=== PATIENT | male | born 1965 | race African-American/Black ===

== ENCOUNTER 2020-06-16 22:02 | Emergency (ER) | payer MEDICAID ==
[~2020-06-16] VITALS: Ht 180.3 cm; Wt 81.6 kg
--- NOTE | 2020-06-16 22:13 | NUR ---
ED Nurse Note: Patient brought in by ambulance from home [id number] c/o back pain 10/10 aching, pt reports he has hx of chronic back pain and gets nerve pain injections. Patient aao x 4 and ambulatory. Patient reports he was doing work in the house 3 days ago and feels it has aggravated his back pain, pt reports unable to bear weight. No acute distress noted during assessment.
[2020-06-16 22:15] VITALS: BP 154/89
[2020-06-16] MEDS ORDERED: HYDROcodone/Acetamin 5/325 tab ORAL ONE (22:30)
--- NOTE | 2020-06-16 22:30 | NUR ---
ED Nurse Note: Patient taken to xray in stable condition
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
[2020-06-16] MEDS ORDERED: IBUPROFEN600 M1 ORAL (22:48)
[2020-06-16] MEDS ORDERED: HYDROCODON-ACE1 EA15 ORAL (22:48)
[2020-06-16 22:55] VITALS: BP 148/85
--- NOTE | 2020-06-16 22:55 | NUR ---
ER DISCHARGE NOTE: Patient is cleared to be discharged per ERMD, pt is aox4, on room air, with stable vital signs. pt was given dc and prescription instructions, pt was able to verbalize understanding, pt id band removed. pt is able to ambulate with steady gait. pt took all belongings. pt stable upon discharge.
--- NOTE | 2020-06-18 14:21 | Diagnostic Imaging Report ---
Indication: Chest/rib pain Technique: PA view of the chest; 6 views of the right ribs Comparison: None Findings: Heart size and mediastinal contours within normal limits. There is no focal airspace consolidation. No pleural effusion, pneumothorax or radiographic evidence of pulmonary edema. No definite suspicious displaced right-sided rib fractures identified. No additional acute osseous abnormality is seen. IMPRESSION: No definite/displaced right-sided rib fracture. Right lung is clear, without evidence of effusion or pneumothorax.
== END 2020-06-16 22:55 | disposition home or self-care (01) ==
LOC: EDBD 22:02 → EMR 22:26
DX: S20.211A Contusion of right front wall of thorax, initial encounter (principal); Y04.0XXA Assault by unarmed brawl or fight, initial encounter; Y92.9 Unspecified place or not applicable
CPT/HCPCS: 71101; Z7502; 99283